=== PATIENT | male | born 1950 | race Caucasian/White ===

== ENCOUNTER 2016-07-30 11:18 | Emergency (ER) | payer MEDICARE ==
[~2016-07-30] VITALS: Ht 180.3 cm; Wt 130.0 kg
[~2016-07-30 11:18] MED LIST: ADVAI250I PO; ALBU8I INH; AMLO5 PO; ASPI81TA82 PO; ATOR20TA42 PO; BILB500C PO; CITA20TA4 PO; DIAZ10 PO; HUMALOGP SQ; HYDR-3534 PO; LAMO100 PO; LEVEMIR SQ; LORTA5 PO; NEUR600T PO; PROT40TA PO; ZOFR4TAB3 SL
[2016-07-30 11:20] VITALS: BP 178/80; PULSE 82; RESP 14; TEMP 98.2; O2SAT 99
--- NOTE | 2016-07-30 11:56 | PD ---
HPI Chief Complaint: Complaint Time Seen by Provider: 11:52 Travel History International Travel<30 days: No Contact w/Intl Traveler<30days: No Traveled to known affect area: No History of Present Illness HPI 66 year old male presents to the emergency department for evaluation of left sided chest pain and bilateral flank pain since Thursday, 5 days. Patient reports both the chest pain and flank pain has been worsening over the 5 days. He denies any nausea, vomiting, diarrhea. He does report constipation, stating his last bowel movement was on Thursday, 7 days ago. He states this is abnormal for him and usually has a bowel movement every morning. Patient states his urine is orange in color. Patient denies any previous abdominal surgeries. He denies any alcohol or current tobacco use. He does smoke marijuana. Patient presents history of hypertension, diabetes, hyperlipidemia, emphysema, on home O2 - 2.5 L. Patient does report history of chronic back pain , but states this is different. No fevers or chills. Patient currently rates chest pain 5/10, flank pain 10/10. PFSH Past Medical History Bipolar Disorder: Yes Depression: Yes Cancer: No High Cholesterol: Yes COPD: Yes Diabetes: Yes Diminished Hearing: No GERD: Yes Hypertension: Yes Insomnia: Yes Musculoskeletal: Yes (back,legs arms) Neurologic: No Psychiatric: Yes (DELUSIONS, DEPRESSION, ANXIETY) Respiratory: Yes Migraines: Yes Triglycerides - High: Yes Past Surgical History Pacemaker: No Other Surgery: Yes (2 back surgerys) Social History Alcohol Use: Yes (beer) Tobacco Use: No (QUIT LONG TIME AGO ) Substance Use: No Allergies-Medications (Allergen,Severity, Reaction): Coded Allergies: Cipro (Verified Allergy, Severe, RASHES, 07/30/16) Penicillin (Verified Allergy, Severe, RASH, 07/30/16) *MDRO Multi-Drug Resistant Organism (Verified Adverse Reaction, Unknown, ) MRSA (sputum) - 07/2012, 08/2012 MRSA PCR Screen #1 - NEGATIVE, 11/08/2014 Reported Meds & Prescriptions Reported Meds & Active Scripts Active Zofran ODT (Ondansetron HCl) 4 Mg Tab 4 Mg SL Q6H PRN FOR NAUSEA/VOMITING [place] 5-325 mg (Hydrocodone-Acetaminophen 5-325 mg) 1 Tab 1 Tab PO Q6H PRN Ventolin Hfa (Albuterol Sulfate) 8 Gm Aero 1 Puff INH Q4H PRN * SHAKE WELL BEFORE USE * Protonix (Pantoprazole Sodium) 40 Mg Tabdr 40 Mg PO DAILY 30 Days Reported Oxycodone (Oxycodone HCl) 10 Mg Tab 10 Mg PO Q6H PRN Humalog Insulin Supplemental Scale (Insulin Human Lispro) 100 Units/Ml Inj 5- 25 Units SQ TIDACHS High Dose Lispro Insulin Sliding Scale = Max dose at bedtime:( )units; Max dose at 3am:( ); blood sugars less than 70 take zero insulin units; blood sugars 150-199 take 5 unit; blood sugars 200-249 take 10 units; blood sugars 250-299 take 15 units; blood sugars 300-349 take 20 units; blood sugars greater than 349 take 25 units Levemir (Insulin Detemir) Inj 30 Units SQ HS Lortab 7.5 mg/325 mg (Hydrocodone/Acetaminophen 7.5 mg/325 mg) 1 Tab 1 Tab PO Q12HR PRN Advair Dis14 Inhala1 Fluticasone/Salmeterol 250/50 Inh 1 Puff PO BID Citalopram Hydrobromide 20 Mg Tab 20 Mg PO DAILY Gabapentin 600 Mg Tab 600 Mg PO TID Norvasc (Amlodipine Besylate) 5 Mg Tab 5 Mg PO DAILY Lipitor (Atorvastatin Calcium) 20 Mg Tab 20 Mg PO DAILY Bilberry (Bilberry (Vaccinium Myrtillus)) 500 Mg Cap 1,000 Mg PO TID Aspir-81 (Aspirin) 81 Mg Tab 81 Mg PO DAILY [id number] M1 100 Mg Tab 100 Mg PO DAILY Valium (Diazepam) 10 Mg Tab 10 Mg PO TIDPRN Review of Systems Except as stated in HPI: all other systems reviewed are Neg Physical Exam Narrative GENERAL: Well-developed well-nourished male patient, afebrile. SKIN: Warm and dry. HEAD: Normocephalic. Atraumatic. EYES: No scleral icterus. No injection or drainage. NECK: Supple, trachea midline. No JVD or lymphadenopathy. CARDIOVASCULAR: Regular rate and rhythm without murmurs, gallops, or rubs. RESPIRATORY: Breath sounds equal bilaterally. No accessory muscle use. GASTROINTESTINAL: Abdomen soft and nondistended. Patient has tenderness over left upper quadrant and mild bilateral flank pain. MUSCULOSKELETAL: No cyanosis, or edema. BACK: Nontender without obvious deformity. Mild bilateral CVA tenderness. Data Data Last Documented VS Vital Signs Date Time Temp Pulse Resp B/P Pulse Ox O2 Delivery O2 Flow Rate FiO2 07/30/16 11:20 98.2 82 14 178/80 99 Room Air Orders Electrocardiogram (07/30/16 11:50) B-Type Natriuretic Peptide (07/30/16 11:50) Ckmb (Isoenzyme) Profile (07/30/16 11:50) Complete Blood Count With Diff (07/30/16 11:50) Comprehensive Metabolic Panel (07/30/16 11:50) Magnesium (Mg) (07/30/16 11:50) Troponin I (07/30/16 11:50) Lipase (07/30/16 11:50) Chest, Single Ap (07/30/16 11:50) Ecg Monitoring (07/30/16 11:50) Bilateral Bp Monitoring (07/30/16 11:50) Iv Access Insert/Monitor (07/30/16 11:50) Oximetry (07/30/16 11:50) Oxygen Administration (07/30/16 11:50) Sodium Chloride 0.9% Flush (Ns Flush) (07/30/16 12:00) Urinalysis - C+S If Indicated (07/30/16 11:50) CKMB (07/30/16 12:50) CKMB% (07/30/16 12:50) Ct Abd/Pel W/O Iv Contrast (07/30/16 ) Hydromorphone Pf Inj (Dilaudid Pf Inj) (07/30/16 14:30) Sodium Chlor 0.9% 1000 Ml Inj (Ns 1000 M (07/30/16 14:30) Cath For Specimen (07/30/16 14:55) Labs Laboratory Tests Test 07/30/16 12:50 White Blood Count 9.3 TH/MM3 Red Blood Count 5.02 MIL/MM3 Hemoglobin 14.7 GM/DL Hematocrit 42.6 % Mean Corpuscular Volume 84.9 FL Mean Corpuscular Hemoglobin 29.4 PG Mean Corpuscular Hemoglobin 34.6 % Concent Red Cell Distribution Width 14.7 % Platelet Count 224 TH/MM3 Mean Platelet Volume 7.8 FL Neutrophils (%) (Auto) 78.6 % Lymphocytes (%) (Auto) 15.9 % Monocytes (%) (Auto) 4.3 % Eosinophils (%) (Auto) 0.7 % Basophils (%) (Auto) 0.5 % Neutrophils # (Auto) 7.3 TH/MM3 Lymphocytes # (Auto) 1.5 TH/MM3 Monocytes # (Auto) 0.4 TH/MM3 Eosinophils # (Auto) 0.1 TH/MM3 Basophils # (Auto) 0.0 TH/MM3 CBC Comment DIFF FINAL Differential Comment Sodium Level 136 MEQ/L Potassium Level 4.9 MEQ/L Chloride Level 103 MEQ/L Carbon Dioxide Level 24.4 MEQ/L Anion Gap 9 MEQ/L Blood Urea Nitrogen 19 MG/DL Creatinine 1.31 MG/DL Estimat Glomerular Filtration 55 ML/MIN Rate Random Glucose 200 MG/DL Calcium Level 8.8 MG/DL Magnesium Level 1.9 MG/DL Total Bilirubin 0.7 MG/DL Aspartate Amino Transf 44 U/L (AST/SGOT) Alanine Aminotransferase 27 U/L (ALT/SGPT) Alkaline Phosphatase 76 U/L Total Creatine Kinase 216 U/L Creatine Kinase MB 3.3 NG/ML Troponin I LESS THAN 0.02 NG/ML B-Type Natriuretic Peptide 12 PG/ML Total Protein 7.4 GM/DL Albumin 3.8 GM/DL Lipase 68 U/L [facility] Medical Decision Making Medical Screen Exam Complete: Yes Emergency Medical Condition: Yes Medical Record Reviewed: Yes Differential Diagnosis UTI versus nephrolithiasis versus bowel instruction versus constipation versus pancreatitis versus diverticulitis versus ACS versus chest wall pain versus electrolyte abnormality Narrative Course 66-year-old male presents to the emergency department for evaluation of left- sided chest pain, bilateral flank pain for 5 days. EKG, CBC, CMP, BNP, lipase, troponin, CK MB, magnesium, chest x-ray, UA are ordered and pending. Workup is initiated in triage. Patient will be moved to medical pod for further evaluation and disposition. Leana Blanco Jul 30, 2016 11:56
[2016-07-30] MEDS ORDERED: SODIUM CHLORIDE 0.9% FLUSH 5 ML FLUSH IVF PRN (12:00)
--- NOTE | 2016-07-30 13:19 | RADRPT ---
EXAM DATE/TIME: 07/30/2016 12:06 [facility] COMPARISON: CHEST SINGLE AP, November 07, 2014, 12:53. INDICATIONS : Chest pains. MEDICAL HISTORY : None. SURGICAL HISTORY : Fusion, cervical. ENCOUNTER: Initial ACUITY: 1 day PAIN SCORE: 3/10 LOCATION: Right lower chest area. FINDINGS: A single view of the chest demonstrates the lungs to be symmetrically aerated without evidence of mas s, infiltrate or effusion. The cardiomediastinal contours are unremarkable. Osseous structures are intact with anterior fixation of the lower cervical spine. CONCLUSION: No acute cardiopulmonary process. Kyaw Oliveira MD on July 30, 2016 at 13:17 Board Certified Radiologist. This report was verified electronically.
[2016-07-30 13:42] LABS: AUTOMATED NEUTROPHIL # 7.3 TH/MM3 (1.8-7.7); BASOPHIL % 0.5 % (0.0-2.0); EOSINOPHIL # 0.1 TH/MM3 (0-0.4); EOSINOPHIL % 0.7 % (0.0-4.0); HEMATOCRIT 42.6 % (39.0-51.0); HEMO FLAGS DIFF FINAL; LYMPH % 15.9 % (9.0-44.0); LYMPHOCYTE # 1.5 TH/MM3 (1.0-4.8); MEAN CELL VOLUME 84.9 FL (80.0-100.0); MEAN CORPUSCULAR HEMOGLOBIN 29.4 PG (27.0-34.0); MEAN CORPUSCULAR HGB CONC 34.6 % (32.0-36.0); MONO % 4.3 % (0.0-8.0); NEUT % 78.6 % (16.0-70.0); PLATELET COUNT 224 TH/MM3 (150-450); RED BLOOD COUNT 5.02 MIL/MM3 (4.50-5.90); RED CELL DISTRIBUTION WIDTH 14.7 % (11.6-17.2); WHITE BLOOD COUNT 9.3 TH/MM3 (4.0-11.0)
[2016-07-30] MEDS ORDERED: OXYC-395 PO (13:45)
[2016-07-30 14:16] LABS: ALKALINE PHOSPHATASE 76 U/L (45-117); ALT (GPT) 27 U/L (12-78); AST (GOT) 44 U/L (15-37); BLOOD UREA NITROGEN 19 MG/DL (7-18); GLOMERULAR FILTRATION RATE 55 ML/MIN (>89); MAGNESIUM 1.9 MG/DL (1.5-2.5); SODIUM (NA) 136 MEQ/L (136-145); TOTAL BILIRUBIN ADULT 0.7 MG/DL (0.2-1.0)
[2016-07-30 14:17] LABS: ANION GAP 9 MEQ/L (5-15); BICARBONATE 24.4 MEQ/L (21.0-32.0); CHLORIDE 103 MEQ/L (98-107); CREATINE KINASE 216 U/L (39-308); POTASSIUM 4.9 MEQ/L (3.5-5.1)
[2016-07-30 14:22] LABS: CKMB 3.3 NG/ML (0.5-3.6)
--- NOTE | 2016-07-30 14:25 | PD ---
Data Data Last Documented VS Vital Signs Date Time Temp Pulse Resp B/P Pulse Ox O2 Delivery O2 Flow Rate FiO2 07/30/16 19:40 18 07/30/16 17:31 84 165/78 98 07/30/16 11:20 98.2 Room Air Orders Electrocardiogram (07/30/16 11:50) B-Type Natriuretic Peptide (07/30/16 11:50) Ckmb (Isoenzyme) Profile (07/30/16 11:50) Complete Blood Count With Diff (07/30/16 11:50) Comprehensive Metabolic Panel (07/30/16 11:50) Magnesium (Mg) (07/30/16 11:50) Troponin I (07/30/16 11:50) Lipase (07/30/16 11:50) Chest, Single Ap (07/30/16 11:50) Ecg Monitoring (07/30/16 11:50) Bilateral Bp Monitoring (07/30/16 11:50) Iv Access Insert/Monitor (07/30/16 11:50) Oximetry (07/30/16 11:50) Oxygen Administration (07/30/16 11:50) Sodium Chloride 0.9% Flush (Ns Flush) (07/30/16 12:00) Urinalysis - C+S If Indicated (07/30/16 11:50) CKMB (07/30/16 12:50) CKMB% (07/30/16 12:50) Ct Abd/Pel W/O Iv Contrast (07/30/16 ) Hydromorphone Pf Inj (Dilaudid Pf Inj) (07/30/16 14:30) Sodium Chlor 0.9% 1000 Ml Inj (Ns 1000 M (07/30/16 14:30) Cath For Specimen (07/30/16 14:55) Mri L Spine W/O Contrast (07/30/16 ) Oxycodone (Roxicodone) (07/30/16 18:00) Labs Laboratory Tests Test 07/30/16 12:50 White Blood Count 9.3 TH/MM3 Red Blood Count 5.02 MIL/MM3 Hemoglobin 14.7 GM/DL Hematocrit 42.6 % Mean Corpuscular Volume 84.9 FL Mean Corpuscular Hemoglobin 29.4 PG Mean Corpuscular Hemoglobin 34.6 % Concent Red Cell Distribution Width 14.7 % Platelet Count 224 TH/MM3 Mean Platelet Volume 7.8 FL Neutrophils (%) (Auto) 78.6 % Lymphocytes (%) (Auto) 15.9 % Monocytes (%) (Auto) 4.3 % Eosinophils (%) (Auto) 0.7 % Basophils (%) (Auto) 0.5 % Neutrophils # (Auto) 7.3 TH/MM3 Lymphocytes # (Auto) 1.5 TH/MM3 Monocytes # (Auto) 0.4 TH/MM3 Eosinophils # (Auto) 0.1 TH/MM3 Basophils # (Auto) 0.0 TH/MM3 CBC Comment DIFF FINAL Differential Comment Sodium Level 136 MEQ/L Potassium Level 4.9 MEQ/L Chloride Level 103 MEQ/L Carbon Dioxide Level 24.4 MEQ/L Anion Gap 9 MEQ/L Blood Urea Nitrogen 19 MG/DL Creatinine 1.31 MG/DL Estimat Glomerular Filtration 55 ML/MIN Rate Random Glucose 200 MG/DL Calcium Level 8.8 MG/DL Magnesium Level 1.9 MG/DL Total Bilirubin 0.7 MG/DL Aspartate Amino Transf 44 U/L (AST/SGOT) Alanine Aminotransferase 27 U/L (ALT/SGPT) Alkaline Phosphatase 76 U/L Total Creatine Kinase 216 U/L Creatine Kinase MB 3.3 NG/ML Troponin I LESS THAN 0.02 NG/ML B-Type Natriuretic Peptide 12 PG/ML Total Protein 7.4 GM/DL Albumin 3.8 GM/DL Lipase 68 U/L [facility] Supervised Visit with ALISSON: Yes Narrative Course Patient care assumed from Leana AGUIRRE. Patient was seen as part of provider in triage screening and then moved into the [facility] pod. Patient is an onset of symptoms, complains of bilateral flank pain and low back pain. Patient states he has back pain at baseline and has had a cervical fusion in the past. Patient states he normally walks with a walker and has not had any occult he walking recently. Patient does have some tenderness in the paraspinous areas as well as bilateral flanks. CVA tenderness is deferred. Interesting the patient has not been able to pass any urine in the emergency department. CT examination of his abdomen without IV contrast shows no kidney stones and no hydronephrosis. No lumbar fracture. Recommended patient have a Jeronimo catheter to assess postvoid residual and assess for infection and he is adamantly refusing catheterization. Patient then stated that he wanted to go home. When trying to ambulate him out of the room he was very unstable likely secondary to antalgic gait. Patient does have a history of degenerative disc disease and curious if he is having problems with urination and urine retention as well as a new low back pain I have concerns for cauda equina syndrome. MRIs have been ordered. Patient was discussed with Dr. Sage the oncoming provider will follow-up MRIs and disposition properly. Given Dilaudid 1 mg IV by me and OxyContin 10 mg by mouth by me as well. Med/Other Pt SpecificInfo: Prescription(s) given Scripts Ibuprofen 400 Mg [id number] Mg PO Q8H PRN (PAIN SCALE 1 TO 4) #20 TAB Ref 0 Prov:Ciera Sage DO 07/30/16 Tamsulosin (Flomax)0.4 Mg Cap0.4 Mg PO HS #30 CAP Ref 0 Prov:Reggie Norris MD 07/30/16 Reggie Norris MD Jul 30, 2016 14:25
[2016-07-30] MEDS ORDERED: HYDROmorphone HCL PF 1 MG/ML VIAL IV PUSH ONE (14:30)
[2016-07-30] MEDS ORDERED: SODIUM CHLOR 0.9% 1000 ML INJ 1,000 ML IV ONE (14:30)
--- NOTE | 2016-07-30 15:14 | RADRPT ---
EXAM DATE/TIME: 07/30/2016 14:40 [facility] COMPARISON: No previous studies available for comparison. INDICATIONS : Bilateral flank pain. ORAL CONTRAST: No oral contrast ingested. RADIATION DOSE: 13.88 CTDIvol (mGy) MEDICAL HISTORY : Hypertension. Diabetes SURGICAL HISTORY : None. ENCOUNTER: Initial ACUITY: 1 day PAIN SCALE: 5/10 LOCATION: Bilateral flank TECHNIQUE: Volumetric scanning of the abdomen and pelvis was performed. Using automated exposure control and adjustment of the mA and/or kV according to patient size, radiation dose was kept as low as reasonably achievable to obtain optimal diagnostic quality images. FINDINGS: Lung bases are clear. The liver is free of focal defects. Spleen, pancreas and adrena ls are unremarkable. There are small gallstones in the gallbladder. RIGHT KIDNEY: There is trace perinephric stranding on the right. There are no calcifications along the expected course of the right ureter. LEFT KIDNEY: There are no calcifications in the left kidney. There are calcifications along the exp ected course of the left ureter. Prostate contains prostatic calcifications. Review of bone windows reveals only degenerative changes . CONCLUSION: Negative for renal stone or obstruction. Lack of intravenous contrast makes detection of pyelonephritis difficult. Flavio Rees MD FACR on July 30, 2016 at 15:02 Board Certified Radiologist. This report was verified electronically.
--- NOTE | 2016-07-30 16:53 | EKG ---
Date Performed: 07/30/2016 Time Performed: 13:03:15 PTAGE: 66 years EKG: Sinus rhythm NORMAL ECG NO SIGNIFICANT CHANGE FROM PRIOR ELECTROCARDIOGRAM. PREVIOUS TRACING : 02/11/2016 09.07 DOCTOR: Lucas Benedict Interpretating Date/Time 07/30/2016 16:52:31
--- NOTE | 2016-07-30 17:09 | PD ---
HPI Chief Complaint: Complaint Time Seen by Provider: 13:38 Travel History International Travel<30 days: No Contact w/Intl Traveler<30days: No Traveled to known affect area: No PFSH Past Medical History Bipolar Disorder: Yes Depression: Yes Cancer: No High Cholesterol: Yes COPD: Yes Diabetes: Yes Diminished Hearing: No GERD: Yes Hypertension: Yes Insomnia: Yes Musculoskeletal: Yes (back,legs arms) Neurologic: No Psychiatric: Yes (DELUSIONS, DEPRESSION, ANXIETY) Respiratory: Yes Migraines: Yes Triglycerides - High: Yes Past Surgical History Pacemaker: No Other Surgery: Yes (2 back surgerys) Social History Alcohol Use: No Tobacco Use: No Substance Use: No Allergies-Medications (Allergen,Severity, Reaction): Coded Allergies: Cipro (Verified Allergy, Severe, RASHES, 07/30/16) Penicillin (Verified Allergy, Severe, RASH, 07/30/16) *MDRO Multi-Drug Resistant Organism (Verified Adverse Reaction, Unknown, ) MRSA (sputum) - 07/2012, 08/2012 MRSA PCR Screen #1 - NEGATIVE, 11/08/2014 Reported Meds & Prescriptions Reported Meds & Active Scripts Active Zofran ODT (Ondansetron HCl) 4 Mg Tab 4 Mg SL Q6H PRN FOR NAUSEA/VOMITING [place] 5-325 mg (Hydrocodone-Acetaminophen 5-325 mg) 1 Tab 1 Tab PO Q6H PRN Ventolin Hfa (Albuterol Sulfate) 8 Gm Aero 1 Puff INH Q4H PRN * SHAKE WELL BEFORE USE * Protonix (Pantoprazole Sodium) 40 Mg Tabdr 40 Mg PO DAILY 30 Days Reported Oxycodone (Oxycodone HCl) 10 Mg Tab 10 Mg PO Q6H PRN Humalog Insulin Supplemental Scale (Insulin Human Lispro) 100 Units/Ml Inj 5- 25 Units SQ TIDACHS High Dose Lispro Insulin Sliding Scale = Max dose at bedtime:( )units; Max dose at 3am:( ); blood sugars less than 70 take zero insulin units; blood sugars 150-199 take 5 unit; blood sugars 200-249 take 10 units; blood sugars 250-299 take 15 units; blood sugars 300-349 take 20 units; blood sugars greater than 349 take 25 units Levemir (Insulin Detemir) Inj 30 Units SQ HS Lortab 7.5 mg/325 mg (Hydrocodone/Acetaminophen 7.5 mg/325 mg) 1 Tab 1 Tab PO Q12HR PRN Advair Dis14 Inhala1 Fluticasone/Salmeterol 250/50 Inh 1 Puff PO BID Citalopram Hydrobromide 20 Mg Tab 20 Mg PO DAILY Gabapentin 600 Mg Tab 600 Mg PO TID Norvasc (Amlodipine Besylate) 5 Mg Tab 5 Mg PO DAILY Lipitor (Atorvastatin Calcium) 20 Mg Tab 20 Mg PO DAILY Bilberry (Bilberry (Vaccinium Myrtillus)) 500 Mg Cap 1,000 Mg PO TID Aspir-81 (Aspirin) 81 Mg Tab 81 Mg PO DAILY [id number] M1 100 Mg Tab 100 Mg PO DAILY Valium (Diazepam) 10 Mg Tab 10 Mg PO TIDPRN Data Data Last Documented VS Vital Signs Date Time Temp Pulse Resp B/P Pulse Ox O2 Delivery O2 Flow Rate FiO2 07/30/16 17:31 84 18 165/78 98 07/30/16 11:20 98.2 Room Air Orders Electrocardiogram (07/30/16 11:50) B-Type Natriuretic Peptide (07/30/16 11:50) Ckmb (Isoenzyme) Profile (07/30/16 11:50) Complete Blood Count With Diff (07/30/16 11:50) Comprehensive Metabolic Panel (07/30/16 11:50) Magnesium (Mg) (07/30/16 11:50) Troponin I (07/30/16 11:50) Lipase (07/30/16 11:50) Chest, Single Ap (07/30/16 11:50) Ecg Monitoring (07/30/16 11:50) Bilateral Bp Monitoring (07/30/16 11:50) Iv Access Insert/Monitor (07/30/16 11:50) Oximetry (07/30/16 11:50) Oxygen Administration (07/30/16 11:50) Sodium Chloride 0.9% Flush (Ns Flush) (07/30/16 12:00) Urinalysis - C+S If Indicated (07/30/16 11:50) CKMB (07/30/16 12:50) CKMB% (07/30/16 12:50) Ct Abd/Pel W/O Iv Contrast (07/30/16 ) Hydromorphone Pf Inj (Dilaudid Pf Inj) (07/30/16 14:30) Sodium Chlor 0.9% 1000 Ml Inj (Ns 1000 M (07/30/16 14:30) Cath For Specimen (07/30/16 14:55) Mri C Spine W/O Contrast (07/30/16 ) Mri L Spine W/O Contrast (07/30/16 ) Mri T Spine W/O Contrast (07/30/16 ) Labs Laboratory Tests Test 07/30/16 12:50 White Blood Count 9.3 TH/MM3 Red Blood Count 5.02 MIL/MM3 Hemoglobin 14.7 GM/DL Hematocrit 42.6 % Mean Corpuscular Volume 84.9 FL Mean Corpuscular Hemoglobin 29.4 PG Mean Corpuscular Hemoglobin 34.6 % Concent Red Cell Distribution Width 14.7 % Platelet Count 224 TH/MM3 Mean Platelet Volume 7.8 FL Neutrophils (%) (Auto) 78.6 % Lymphocytes (%) (Auto) 15.9 % Monocytes (%) (Auto) 4.3 % Eosinophils (%) (Auto) 0.7 % Basophils (%) (Auto) 0.5 % Neutrophils # (Auto) 7.3 TH/MM3 Lymphocytes # (Auto) 1.5 TH/MM3 Monocytes # (Auto) 0.4 TH/MM3 Eosinophils # (Auto) 0.1 TH/MM3 Basophils # (Auto) 0.0 TH/MM3 CBC Comment DIFF FINAL Differential Comment Sodium Level 136 MEQ/L Potassium Level 4.9 MEQ/L Chloride Level 103 MEQ/L Carbon Dioxide Level 24.4 MEQ/L Anion Gap 9 MEQ/L Blood Urea Nitrogen 19 MG/DL Creatinine 1.31 MG/DL Estimat Glomerular Filtration 55 ML/MIN Rate Random Glucose 200 MG/DL Calcium Level 8.8 MG/DL Magnesium Level 1.9 MG/DL Total Bilirubin 0.7 MG/DL Aspartate Amino Transf 44 U/L (AST/SGOT) Alanine Aminotransferase 27 U/L (ALT/SGPT) Alkaline Phosphatase 76 U/L Total Creatine Kinase 216 U/L Creatine Kinase MB 3.3 NG/ML Troponin I LESS THAN 0.02 NG/ML B-Type Natriuretic Peptide 12 PG/ML Total Protein 7.4 GM/DL Albumin 3.8 GM/DL Lipase 68 U/L MDM Diagnosis Primary Impression: Back pain Qualified Code: M54.5 - Bilateral low back pain without sciatica, unspecified chronicity Additional Instructions: Follow-up your primary care provider by phone in the morning. Disposition: 01 DISCHARGE HOME Condition: Reggie Ghotra MD Jul 30, 2016 17:09
[2016-07-30 17:31] VITALS: BP 165/78
[2016-07-30] MEDS ORDERED: TAMS5CAP PO (17:57)
[2016-07-30 19:40] VITALS: RESP 18
--- NOTE | 2016-07-30 20:47 | RADRPT ---
EXAM DATE/TIME: 07/30/2016 19:44 [facility] COMPARISON: No previous studies available for comparison. INDICATIONS : Pain. Leg weakness. MEDICAL HISTORY : Diabetes mellitus type 2. Hypertension. SURGICAL HISTORY : Fusion, cervical. ENCOUNTER: Subsequent ACUITY: 4-6 days PAIN SCORE: 8/10 LOCATION: low back. TECHNIQUE: Multiplanar multisequence MRI of the lumbar spine was performed without contrast. FINDINGS: The most caudal appearing lumbar vertebra is numbered as L5. VERTEBRAE: Large presumed hemangioma in L1 vertebral body measuring up to 2.9 cm in diameter. CONUS: Normal level and configuration. T12-L1: The thecal sac has a normal diameter. No evidence of disc bulge or protrusion. The neural foramina are patent bilaterally. L1-L2: The thecal sac has a normal diameter. No evidence of disc bulge or protrusion. The neural foramina are patent bilaterally. L2-L3: Broad-based disc bulge without significant stenosis. L3-L4: Broad-based posterior disc osteophyte complex with mild stenosis of the lateral recesses and mild johnnie ateral neural foraminal stenosis. L4-L5: Posterior disc osteophyte complex with mild stenosis of the lateral recesses and mild neural foramina l encroachment. L5-S1: Mild osteophytic ridging and facet arthropathy without significant stenosis. CONCLUSION: 1. Degenerative disc disease as above with multilevel encroachment on the lateral recesses and neural foramina. No significant nerve root compression identified. Conus medullaris is intact. Probable hem angioma at L1 and also at T11 and T12. Brandyn Cottrell MD on July 30, 2016 at 20:41 Board Certified Radiologist. This report was verified electronically.
[2016-07-30] MEDS ORDERED: IBUP400T20 PO (21:33)
--- NOTE | 2016-07-30 21:34 | PD ---
Physical Exam Narrative Received sign out from previous team to follow up with MRI and reevaluate. 66yo M with chronic back pain states that he has not urinated since this morning. Pt is refusing urinary catheter and understands that he can have kidney injury with urinary retention. Pt has been having chronic back pain for years and follows with pain management as outpatient. Pt states he has been having unsteady gait for 10 years and uses a walker. MRI LS showed degenerative disc disease but no significant nerve root compression. Conus medullaris is intact. Probable hemangioma. Pt refused MRI cervical and thoracic spine. Pt is signing out against medical advice. AMA: The risks of leaving against medical advice without further evaluation treatment were discussed with the patient. These risks include cardiac dysfunction, cardiac dysrhythmia, possible heart attack, possible stroke or . The patient indicated understanding of these risks and appeared to have the capacity to make this decision. Data Data Last Documented VS Vital Signs Date Time Temp Pulse Resp B/P Pulse Ox O2 Delivery O2 Flow Rate FiO2 07/30/16 19:40 18 07/30/16 17:31 84 165/78 98 07/30/16 11:20 98.2 Room Air Orders Electrocardiogram (07/30/16 11:50) B-Type Natriuretic Peptide (07/30/16 11:50) Ckmb (Isoenzyme) Profile (07/30/16 11:50) Complete Blood Count With Diff (07/30/16 11:50) Comprehensive Metabolic Panel (07/30/16 11:50) Magnesium (Mg) (07/30/16 11:50) Troponin I (07/30/16 11:50) Lipase (07/30/16 11:50) Chest, Single Ap (07/30/16 11:50) Ecg Monitoring (07/30/16 11:50) Bilateral Bp Monitoring (07/30/16 11:50) Iv Access Insert/Monitor (07/30/16 11:50) Oximetry (07/30/16 11:50) Oxygen Administration (07/30/16 11:50) Sodium Chloride 0.9% Flush (Ns Flush) (07/30/16 12:00) Urinalysis - C+S If Indicated (07/30/16 11:50) CKMB (07/30/16 12:50) CKMB% (07/30/16 12:50) Ct Abd/Pel W/O Iv Contrast (07/30/16 ) Hydromorphone Pf Inj (Dilaudid Pf Inj) (07/30/16 14:30) Sodium Chlor 0.9% 1000 Ml Inj (Ns 1000 M (07/30/16 14:30) Cath For Specimen (07/30/16 14:55) Mri L Spine W/O Contrast (07/30/16 ) Oxycodone (Roxicodone) (07/30/16 18:00) Labs Laboratory Tests Test 07/30/16 12:50 White Blood Count 9.3 TH/MM3 Red Blood Count 5.02 MIL/MM3 Hemoglobin 14.7 GM/DL Hematocrit 42.6 % Mean Corpuscular Volume 84.9 FL Mean Corpuscular Hemoglobin 29.4 PG Mean Corpuscular Hemoglobin 34.6 % Concent Red Cell Distribution Width 14.7 % Platelet Count 224 TH/MM3 Mean Platelet Volume 7.8 FL Neutrophils (%) (Auto) 78.6 % Lymphocytes (%) (Auto) 15.9 % Monocytes (%) (Auto) 4.3 % Eosinophils (%) (Auto) 0.7 % Basophils (%) (Auto) 0.5 % Neutrophils # (Auto) 7.3 TH/MM3 Lymphocytes # (Auto) 1.5 TH/MM3 Monocytes # (Auto) 0.4 TH/MM3 Eosinophils # (Auto) 0.1 TH/MM3 Basophils # (Auto) 0.0 TH/MM3 CBC Comment DIFF FINAL Differential Comment Sodium Level 136 MEQ/L Potassium Level 4.9 MEQ/L Chloride Level 103 MEQ/L Carbon Dioxide Level 24.4 MEQ/L Anion Gap 9 MEQ/L Blood Urea Nitrogen 19 MG/DL Creatinine 1.31 MG/DL Estimat Glomerular Filtration 55 ML/MIN Rate Random Glucose 200 MG/DL Calcium Level 8.8 MG/DL Magnesium Level 1.9 MG/DL Total Bilirubin 0.7 MG/DL Aspartate Amino Transf 44 U/L (AST/SGOT) Alanine Aminotransferase 27 U/L (ALT/SGPT) Alkaline Phosphatase 76 U/L Total Creatine Kinase 216 U/L Creatine Kinase MB 3.3 NG/ML Troponin I LESS THAN 0.02 NG/ML B-Type Natriuretic Peptide 12 PG/ML Total Protein 7.4 GM/DL Albumin 3.8 GM/DL Lipase 68 U/L [facility] Supervised Visit with ALISSON: No Diagnosis Primary Impression: Back pain Qualified Code: M54.5 - Bilateral low back pain without sciatica, unspecified chronicity Patient Instructions: General Instructions, Narcotic given in the ED Departure Forms: Tests/Procedures Additional Instruction: Follow-up your primary care provider by phone in the morning. Med/Other Pt SpecificInfo: Prescription(s) given Scripts Ibuprofen 400 Mg [id number] Mg PO Q8H PRN (PAIN SCALE 1 TO 4) #20 TAB Ref 0 Prov:Ciera Sage DO 07/30/16 Tamsulosin (Flomax)0.4 Mg Cap0.4 Mg PO HS #30 CAP Ref 0 Prov:Reggie Norris MD 07/30/16 Disposition: 07 AGAINST MEDICAL ADVICE Condition: Stable Ciera Sage DO Jul 30, 2016 21:34
== END 2016-07-30 21:58 | disposition left against medical advice (07) ==
LOC: NEPB 11:18
DX: M54.5 Low back pain (principal); R39.198 Other difficulties with micturition; K59.00 Constipation, unspecified; R07.89 Other chest pain; R10.9 Unspecified abdominal pain; I10 Essential (primary) hypertension; E11.9 Type 2 diabetes mellitus without complications; J43.9 Emphysema, unspecified; E78.00 Pure hypercholesterolemia, unspecified; E78.1 Pure hyperglyceridemia; Z53.20 Procedure and treatment not carried out because of patient's decision for unspecified reasons; Z99.81 Dependence on supplemental oxygen; Z86.59 Personal history of other mental and behavioral disorders; Z87.09 Personal history of other diseases of the respiratory system; Z87.19 Personal history of other diseases of the digestive system; Z87.39 Personal history of other diseases of the musculoskeletal system and connective tissue; Z86.69 Personal history of other diseases of the nervous system and sense organs; Z79.899 Other long term (current) drug therapy
CPT/HCPCS: 71010; 72148; 74176; 80053; 82550; 82552; 83690; 83735; 83880; 84484; 85025; 93005; 96361; 96374; 99285; J1170; J7030

== ENCOUNTER → 2017-06-02 | Day surgery (SDC) | payer MEDICARE ==
[~2017-06-02] MED LIST changes: +ADVA250A INH; +AMLO5TAB2 PO; +ASPI81TA22 PO; +ATOR20TA15 PO; +BILB30CA PO; +BUPIVACAINE HCL PF 0.75% 30 ML VIAL ONE; +DIAZ10TA PO; +GABA300C5 PO; +GLIM2TAB PO; +IBUP1TAB5 PO; +LAMO100T PO; +LISI10TA3 PO; +METF500T PO; +METO1TAB9 PO; +NOVOLOGP2 SQ; +OXYC-395 PO; +OXYC1TAB36 PO; +PANT40TA3 PO; +PROPOFOL 200 MG/20 ML AMP IV ONE; +SERT-129 PO; +TAMS5CAP PO; +TRAZ100T10 PO; +TRIAMCINOLONE ACETONIDE 40 MG/ML VIAL I-ARTICULR ONE
--- NOTE | 2017-06-02 10:05 | M6 ---
cc: MERARY BORRERO M.D. DATE 06/02/2017 DATE OF 1950 PROCEDURE Fluoroscopically guided injection bilateral lumbar facet joints (bilateral L3-4, L4-5 and L5-S1 facet joints). History and physical was completed and signed. Consent was signed. Procedure site was marked. Medications were listed and reconciled. Pain score was recorded. Allergies were noted. Time out was taken. Fluoroscopy time was recorded where applicable. Sedation was administered or directed by Dr. Borrero. The patient was given oxygen. The patient was monitored by a registered nurse. Total procedure time was greater than 15 minutes. PROCEDURE NOTE IV was started. Blood pressure cuff, pulse oximeter and EKG were applied. The patient was placed in the prone position on a Celso table, sedated with small amounts of propofol titrated to effect. Vital signs were monitored and remained stable throughout the procedure. The lumbar area was prepped with alcohol and 10% Betadine solution and draped with sterile drapes. Fluoroscopy was used in a Kamlesh dog view to clearly visualize the bilateral lumbar facet joints at L3-4, L4-5 and L5-S1. Separate sterile 3-1/2-inch, 25-gauge spinal needles were advanced into these joints under fluoroscopic guidance. There was negative aspiration for blood or any other type of fluid. At each location the patient was given 1 mL of Marcaine 0.75% which contained 10 mg of Kenalog. Following the procedure the patient was taken to the recovery room with stable vital signs neurologically intact. He will be evaluated immediately and with followup to determine if he has a subjective decrease in his usual pain and a corresponding objective increase in his functional capabilities. WNorm Borrero MD [facility]Y /9:43 AM /9:48 AM
== END | disposition home or self-care (01) ==
LOC: PHSDC 07:01
PROVIDERS: ATTEND Pain Medicine Interventional Pain Medicine
DX: M54.5 Low back pain (principal)
CPT/HCPCS: 64493; 64494; 64495; 99152; J3301

== ENCOUNTER 2018-03-10 11:15 | Inpatient (IN) ==
[2018-03-10] MEDS ORDERED: Diphtheria/Tetanus/Pertussis Vaccine Inj 0.5 ML Syringe IM ONE (11:27)
[2018-03-10] MEDS ORDERED: HYDROmorphone PF Inj 2 MG/ML Vial IV.PUSH ONE (11:45)
[2018-03-10 11:55] LABS: Baso % (Auto) 0.5 % (0.0-2.0); Eos % (Auto) 0.4 % (0.0-4.0); Hematocrit 41.3 % (39.0-51.0); Hemoglobin 14.1 gm/dL (13.0-17.0); Lymph # (Auto) 0.8 th/mm3 (1.0-4.8); Lymph % (Auto) 7.3 % (9.0-44.0); Mean Corpuscular HGB Conc 34.1 % (32.0-36.0); Mean Corpuscular Hemoglobin 30.8 pg (27.0-34.0); Mean Corpuscular Volume 90.3 fL (80.0-100.0); Mean Platelet Volume 7.2 fL (7.0-11.0); Mono # (Auto) 0.5 th/mm3 (0.0-0.9); Neut # (Auto) 9.2 th/mm3 (1.8-7.7); Neut % (Auto) 86.8 % (16.0-70.0); Platelet Count 195 th/mm3 (150-450); Red Blood Count 4.57 mil/mm3 (4.50-5.90); Red Cell Distribution Width 14.1 % (11.6-17.2); White Blood Count 10.6 th/mm3 (4.0-11.0)
[2018-03-10 12:06] LABS: Activated Partial Thrombo Time 22.9 sec (24.3-30.1); INR 1.1 Ratio; Prothrombin Time 10.9 sec (9.8-11.6)
--- NOTE | 2018-03-10 12:17 | ED ---
HPI General Chief Complaint: Fall Stated Complaint: Fall/Right lower leg Time Seen by Provider: 03/10/18 11:21 Source: patient, EMS and RN notes reviewed Mode of arrival: EMS Limitations: no limitations History of Present Illness HPI Narrative: 67-year-old male with a chronic history of spinal disease with chronic back pain as well as high blood pressure and diabetes presents to the ED for evaluation of injury to his right ankle. Per patient he "just felt ". He denies any preloading symptoms to the fall. He denies tripping but states that this is a common occurrence for him. He has fallen multiple times in the past. He denies any recent surgeries to his ankle. Patient himself cannot get up and had an obvious deformity to his right ankle and per EVAC and per patient she crawl into his house where he called 911. Per EVAC is been pretty much with it. Patient denies any chest pain or shortness of breath. He does state feeling dizzy after the fall. He states that the pain currently is 8 out of 10. He was given morphine 10 mg IV by EVAC. Patient was put on a backboard. No cervical collar placed. Patient does have obvious deformity to the right ankle with what appears to be a superficial laceration. Per EVAC patient was seen initially by fire department who put the splint. Per EVAC patient has good pulses. Patient states that he cannot move the ankle and states having some numbness and sensation deficits to the foot itself but able to feel pain however. Patient cannot really tell me when his last tetanus shot was. Per patient he ate this morning around 6:00 in the morning. He chronically does take opiates. He denies having orthopedic surgeon. Related Data Home Medications Medication Instructions Recorded Confirmed amlodipine 5 mg PO DAILY 03/10/18 03/10/18 atorvastatin 20 mg PO HS 03/10/18 03/10/18 diazepam [Valium] 10 mg PO Q8HR 03/10/18 03/10/18 gabapentin 600 mg PO TID 03/10/18 03/10/18 glimepiride 2 mg PO QAM 03/10/18 03/10/18 insulin aspart U-100 [Novolog 1 sliding scale dose SUB-Q TIDAC 03/10/18 03/10/18 U-100 Insulin aspart] lamotrigine [Lamictal] 150 mg PO DAILY 03/10/18 03/10/18 lisinopril 10 mg PO DAILY 03/10/18 03/10/18 oxycodone-acetaminophen [Percocet] 1 tab PO TID 03/10/18 03/10/18 pantoprazole 40 mg PO DAILY 03/10/18 03/10/18 sertraline [Zoloft] 150 mg PO DAILY 03/10/18 03/10/18 sertraline [Zoloft] 150 mg PO DAILY 03/10/18 03/10/18 tamsulosin [Flomax] 0.4 mg PO HS 03/10/18 03/10/18 trazodone 200 mg PO HS 03/10/18 03/10/18 Allergies Allergy/AdvReac Type Severity Reaction Status Date / Time ciprofloxacin Allergy Severe RASHES Verified 03/10/18 11:38 penicillin G Allergy Severe RASH Verified 03/10/18 11:38 Review of Systems ROS: all other systems reviewed are negative PMFSH History History Provided By: Patient and Civil Division Deputy Sheriff / EMT Medical History Medical History Anxiety (Acute) Diabetes (Acute) HBP (high blood pressure) (Acute) Surgical History Surgical History Hx of neck surgery (Acute) Social History Social History Substance History: No History of Abuse Second Hand Smoke Exposure: No Smoking Status: Former smoker Tobacco Type: Cigarettes How Often Do You Have a Drink Containing Alcohol: Monthly or less Recent Travel in [facility] within the Last 8 Weeks: No Recent Out of Country Travel within the Last 8 Weeks: No Exam Narrative Exam Narrative: GENERAL: Well appearing. SKIN: Focused skin assessment warm/dry. HEAD: Atraumatic. Normocephalic. EYES: Pupils equal and round. No scleral icterus. No injection or drainage. ENT: No nasal bleeding or discharge. Mucous membranes pink and moist. Tongue is midline. No uvula deviation. NECK: Trachea midline. No JVD. CARDIOVASCULAR: Regular rate and rhythm. No murmur appreciated. RESPIRATORY: No accessory muscle use. Clear to auscultation. Breath sounds equal bilaterally. GASTROINTESTINAL: Abdomen soft, non-tender, nondistended. Hepatic and splenic margins not palpable. MUSCULOSKELETAL: No obvious deformities. No clubbing. No cyanosis. No edema. Full range of motion of the upper and lower extremities bilateral With exception of the right ankle were patient has obvious deformity what appears to be open laceration on the right medial aspect of the ankle just superior to the malleolus. No obvious bone noted but laceration does appear to be deep almost 1 -2 cm. Patient does appear to have 2+ pulses in the distal posterior tibialis and dorsalis pedis. 2+ pulses bilaterally. NEUROLOGICAL: Awake and alert. No obvious cranial nerve deficits. Motor grossly within normal limits. Normal speech. PSYCHIATRIC: Appropriate mood and affect; insight and judgment normal. Procedures Orthopedic Fracture Reduction Fracture #1: Time Out Performed: Yes Side: right Fracture Reduction Location: tibia and fibula Analgesia: procedural sedation Technique: direct manipulation Post Reduction X-rays Demonstrate: acceptable reduction Post-Reduction Neuro Exam: intact Post-Reduction Vascular Exam: intact Splint Applied: Yes Patient Tolerated Procedure: well Course Initial Documented Vital Signs Temperature 97.9 F 03/10/18 11:25 Pulse Rate 96 H 03/10/18 11:25 Respiratory Rate 18 03/10/18 11:25 Blood Pressure 159/75 H 03/10/18 11:25 Pulse Oximetry 97 03/10/18 11:25 Last Documented Vital Signs Temperature 97.7 F 03/10/18 13:25 Pulse Rate 106 H 03/10/18 13:25 Respiratory Rate 20 03/10/18 13:25 Blood Pressure 156/80 H 03/10/18 13:25 Pulse Oximetry 97 03/10/18 14:21 Medical Decision Making [facility] Narrative Medical decision making narrative: 67-year-old male the presents to the ED for evaluation of right ankle injury. Patient was properly examined and was found to have signs and symptoms concerning for fractures. X-rays were ordered. X- ray showed What appears to be fracture of the proximal fibula as well as the distal tib-fib. It appears to be open. My attending Dr. Robles was made aware of findings. Patient will start IV antibiotics. We spoke with Dr. Andrews for orthopedic surgery who recommends that we reduce the ankle and put him on a long-leg splint. Patient was told this and agrees with plan. Patient was put under conscious sedation for reduction of the ankle with minimal discomfort for the patient, please refer to the note, my attending Dr Robles was present at all times during the procedure. Patient tolerated procedure well. Splint was placed by ED or to attack. Labs and imaging otherwise unremarkable. Patient will be admitted for further evaluation to Dr. Ramos after [facility] nurse practitioner call us back and agreed to admission. Medical Screen Exam Complete: Yes Emergency Medical Condition: Yes Differential Diagnosis Differential Diagnosis: Fracture versus sprain versus strain versus open fracture versus dislocation versus open dislocation Medical Records Medical records reviewed: Yes I reviewed the patient's medical records. Lab Data Lab results reviewed: Yes I reviewed the patient's lab results. Lab results narrative: troponin and CKMB negative Result diagrams: 03/10/18 11:31 03/10/18 11:31 Lab Results 03/10/18 03/10/18 03/10/18 Range/Units 11:31 11:31 11:31 WBC 10.6 (4.0-11.0) th/mm3 RBC 4.57 (4.50-5.90) mil/mm3 Hgb 14.1 (13.0-17.0) gm/dL Hct 41.3 (39.0-51.0) % MCV 90.3 (80.0-100.0) fL MCH 30.8 (27.0-34.0) pg MCHC 34.1 (32.0-36.0) % RDW 14.1 (11.6-17.2) % Plt Count 195 (150-450) th/mm3 MPV 7.2 (7.0-11.0) fL Neut % (Auto) 86.8 H (16.0-70.0) % Lymph % (Auto) 7.3 L (9.0-44.0) % [place] % (Auto) 5.0 (0.0-8.0) % Eos % (Auto) 0.4 (0.0-4.0) % Baso % (Auto) 0.5 (0.0-2.0) % Neut # (Auto) 9.2 H (1.8-7.7) th/mm3 Lymph # (Auto) 0.8 L (1.0-4.8) th/mm3 [place] # (Auto) 0.5 (0.0-0.9) th/mm3 Eos # (Auto) 0.0 (0.0-0.4) th/mm3 Baso # (Auto) 0.0 (0.0-0.2) th/mm3 WBC Differential . Differential Comment Auto diff final PT 10.9 (9.8-11.6) sec INR 1.1 Ratio APTT 22.9 L (24.3-30.1) sec Sodium 142 (136-145) meq/L Potassium 4.0 (3.5-5.1) meq/L Chloride 105 (98-107) meq/L Carbon Dioxide 27.4 (21.0-32.0) meq/L Anion Gap 10 (5-15) meq/L BUN 15 (7-18) mg/dL Creatinine 1.43 H (0.60-1.30) mg/dL Estimated GFR 50 L (>89) mL/min Random Glucose 388 H (74-106) mg/dL Calcium 8.9 (8.5-10.1) mg/dL Troponin I Less than 0.02 L (0.02-0.05) ng/mL Imaging Data Attestation: I personally reviewed and interpreted this imaging study as follows : Radiologist's impression: Ankle X-Ray 03/10/18 11:27 CONCLUSION: Small fracture of the tibia with some rotation and angulation. Chest X-Ray 03/10/18 11:27 CONCLUSION: 1. Mild pulmonary vascular congestion. 2. Cardiomegaly. Tibia/Fibula X-Ray 03/10/18 11:27 CONCLUSION: Fibular neck fracture. Spiral fractures involving both the tibial shaft distally in the fibular shaft distally Foot X-Ray 03/10/18 12:28 CONCLUSION: Negative examination. Small plantar spur ECG Data EKG Prior to Arrival: No Attestation: I personally reviewed and interpreted this ECG as follows: Interpretation: EKG shows sinus tachycardia with no sign of acute ischemia and arrhythmia read by me and attending. Discharge Plan Discharge Disposition Patient Disposition: 30 Still Patient Discharge Details Diagnosis: Fracture of tibia and fibula, open Physicians Team ED Provider: Dada Robles ED Midlevel Provider: Haider Kent Primary Care Provider: Cooper Gandih Attending Provider: Angy Ramos Status ED Status: Admitted Patient
[2018-03-10 12:19] LABS: Anion Gap 10 meq/L (5-15); Blood Urea Nitrogen 15 mg/dL (7-18); Calcium 8.9 mg/dL (8.5-10.1); Carbon Dioxide 27.4 meq/L (21.0-32.0); Chloride 105 meq/L (98-107); Glomerular Filtration Rate 50 mL/min (>89); Glucose,Random 388 mg/dL (74-106); Sodium 142 meq/L (136-145)
[2018-03-10] MEDS ORDERED: Morphine Sulfate Inj 2 MG/ML Vial IV.PUSH PRN (14:27)
[2018-03-10] MEDS ORDERED: Dextrose 50% in Water 50 ML Vial IV.PUSH PRN (15:23)
[2018-03-10] MEDS: Sod Chloride 0.9% Inj 1,000 ML IV.CONT SCH (15:36)
[2018-03-10] MEDS: Insulin NovoLOG Aspart Correctional Sugar Inj SQ SCH ×2 (18:15→20:23)
[2018-03-10] MEDS: HYDROmorphone PF Inj 2 MG/ML Vial IV.PUSH PRN ×2 (18:24→23:10)
[2018-03-10] MEDS: traZODone 100 MG Tablet PO SCH (20:23)
[2018-03-11] MEDS: Sod Chloride 0.9% Inj 1,000 ML IV.CONT SCH ×3 (02:16→11:05)
[2018-03-11] MEDS: HYDROmorphone PF Inj 2 MG/ML Vial IV.PUSH PRN ×2 (04:49→12:33)
[2018-03-11 05:11] LABS: Baso % (Auto) 0.4 % (0.0-2.0); Eos # (Auto) 0.1 th/mm3 (0.0-0.4); Eos % (Auto) 1.8 % (0.0-4.0); Hematocrit 37.1 % (39.0-51.0); Hemoglobin 12.5 gm/dL (13.0-17.0); Lymph # (Auto) 1.9 th/mm3 (1.0-4.8); Lymph % (Auto) 22.7 % (9.0-44.0); Mean Corpuscular HGB Conc 33.7 % (32.0-36.0); Mean Corpuscular Hemoglobin 30.8 pg (27.0-34.0); Mean Corpuscular Volume 91.4 fL (80.0-100.0); Mean Platelet Volume 7.3 fL (7.0-11.0); Mono # (Auto) 0.7 th/mm3 (0.0-0.9); Mono % (Auto) 7.9 % (0.0-8.0); Neut # (Auto) 5.6 th/mm3 (1.8-7.7); Neut % (Auto) 67.2 % (16.0-70.0); Platelet Count 183 th/mm3 (150-450); Red Blood Count 4.06 mil/mm3 (4.50-5.90); Red Cell Distribution Width 14.3 % (11.6-17.2); White Blood Count 8.3 th/mm3 (4.0-11.0)
[2018-03-11 05:35] LABS: Calcium 8.2 mg/dL (8.5-10.1); Carbon Dioxide 26.1 meq/L (21.0-32.0); Potassium 3.8 meq/L (3.5-5.1)
[2018-03-11] MEDS ORDERED: Chlorhexidine Gluconate 2% 1 Pack (2 Cloths) TOPICAL ONE (06:00)
[2018-03-11] MEDS ORDERED: Metoprolol Tartrate 25 MG Tablet PO ONE (06:00)
[2018-03-11] MEDS ORDERED: Sodium Chlor 0.9% Inj 500 ML IV.CONT ONE (06:00)
[2018-03-11] MEDS ORDERED: Bupivacaine/Epinephrine PF Inj 0.25% 10 ML Vial ONE (06:57)
[2018-03-11] MEDS ORDERED: Glycopyrrolate Inj 1 MG/5 ML Syringe IV.PUSH ONE (07:30)
[2018-03-11] MEDS ORDERED: Neostigmine Inj 5 MG/5 ML Syringe IV.PUSH ONE (07:30)
[2018-03-11] MEDS ORDERED: Lidocaine PF 1% Inj 5 ML Syringe OTHER ONE (07:30)
[2018-03-11] MEDS ORDERED: Post-op Orders (for Pharmacy) OTHER STA (08:23)
[2018-03-11 08:28] LABS: Bilirubin,Urine Negative (Negative); Clarity,Urine Hazy (Clear); Color,Urine Yellow (Yellw/Straw); Glucose,Urine (UA) 500 or Greater mg/dL (Negative); Hyaline Casts,Urine 9 /lpf (0-3); Leukocyte Esterase,Urine Negative (Negative); Mucus,Urine Few /lpf (Occasional); Nitrite,Urine Negative (Negative); Specific Gravity,Urine 1.028 (1.002-1.035)
[2018-03-11] MEDS ORDERED: fentaNYL Citrate Inj 100 MCG/2 ML Ampul ONE (09:07)
[2018-03-11] MEDS ORDERED: *morphine SULFATE 4 MG/ML PERIprocedure ONLY ONE (09:15)
[2018-03-11] MEDS: Insulin NovoLOG Aspart Correctional Sugar Inj SQ SCH ×4 (09:22→23:11)
[2018-03-11] MEDS: Gabapentin 300 MG Capsule PO SCH ×3 (10:08→17:32)
[2018-03-11] MEDS: Sertraline 50 MG Tablet PO SCH (10:08)
[2018-03-11] MEDS: lamoTRIgine 100 MG Tablet PO SCH (10:08)
[2018-03-11] MEDS: Sertraline 100 MG Tablet PO SCH (10:09)
[2018-03-11] MEDS: Lisinopril 10 MG Tablet PO SCH (10:09)
[2018-03-11] MEDS: amLODIPine 5 MG Tablet PO SCH (10:10)
[2018-03-11] MEDS: Calcium/Vitamin D 250/125 MG Tablet PO SCH ×3 (10:18→17:32)
[2018-03-11] MEDS: Senna/Docusate Sodium 8.6/50 MG Tablet PO SCH ×2 (10:18→22:50)
[2018-03-11] MEDS: Glimepiride 2 MG Tablet PO SCH (15:09)
[2018-03-11] MEDS: Gentamicin/NS 80 mg Premix 100 ML IV.SIG SCH (17:32)
--- NOTE | 2018-03-11 20:04 | ECG ---
Date Performed: 03/10/2018 Time Performed: 11:54:29 PTAGE: 67 years EKG: SINUS TACHYCARDIA NONDIAGNOSTIC Q WAVES IN THE INFERIOR LEADS PVC Since the previous tracin g, no significant change noted ABNORMAL RHYTHM ECG PREVIOUS TRACING : 12/07/2017 13.10 DOCTOR: Jignesh Hutchins Interpretating Date/Time 03/11/2018 20:03:15
[2018-03-11] MEDS ORDERED: Acetaminophen 325 MG Tablet PO PRN (21:29)
[2018-03-11] MEDS: Vancomycin Inj 1,000 MG in Sodium Chlor 0.9% Inj 250 ML IV.SIG SCH (21:44)
[2018-03-11] MEDS: traZODone 100 MG Tablet PO SCH (22:50)
[2018-03-12] MEDS: Sod Chloride 0.9% Inj 1,000 ML IV.CONT SCH ×4 (00:50→17:05)
[2018-03-12] MEDS: Gentamicin/NS 80 mg Premix 100 ML IV.SIG SCH ×3 (00:55→16:29)
[2018-03-12] MEDS: HYDROmorphone PF Inj 2 MG/ML Vial IV.PUSH PRN ×2 (01:07→11:18)
[2018-03-12] MEDS: Glimepiride 2 MG Tablet PO SCH (07:00)
[2018-03-12] MEDS: Insulin NovoLOG Aspart Correctional Sugar Inj SQ SCH ×4 (08:00→22:12)
[2018-03-12] MEDS: Sertraline 100 MG Tablet PO SCH (08:32)
[2018-03-12] MEDS: Lisinopril 10 MG Tablet PO SCH (08:32)
[2018-03-12] MEDS: Gabapentin 300 MG Capsule PO SCH ×3 (08:32→17:05)
[2018-03-12] MEDS: Senna/Docusate Sodium 8.6/50 MG Tablet PO SCH ×2 (08:32→20:26)
[2018-03-12] MEDS: Sertraline 50 MG Tablet PO SCH (08:33)
[2018-03-12] MEDS: lamoTRIgine 100 MG Tablet PO SCH (08:33)
[2018-03-12] MEDS: amLODIPine 5 MG Tablet PO SCH (08:33)
[2018-03-12] MEDS: Enoxaparin Inj 40 MG/0.4 ML Syringe SQ SCH (08:33)
[2018-03-12] MEDS: Calcium/Vitamin D 250/125 MG Tablet PO SCH ×3 (08:34→17:05)
[2018-03-12] MEDS: Vancomycin Inj 1,000 MG in Sodium Chlor 0.9% Inj 250 ML IV.SIG SCH (08:37)
[2018-03-12 13:11] LABS: Hematocrit 34.9 % (39.0-51.0); Hemoglobin 11.9 gm/dL (13.0-17.0); Mean Corpuscular Hemoglobin 30.9 pg (27.0-34.0); Mean Corpuscular Volume 90.9 fL (80.0-100.0); Mean Platelet Volume 7.6 fL (7.0-11.0); Platelet Count 193 th/mm3 (150-450); Red Blood Count 3.84 mil/mm3 (4.50-5.90); Red Cell Distribution Width 14.1 % (11.6-17.2); White Blood Count 7.9 th/mm3 (4.0-11.0)
[2018-03-12] MEDS: traZODone 100 MG Tablet PO SCH (20:26)
[2018-03-13] MEDS: HYDROmorphone PF Inj 2 MG/ML Vial IV.PUSH PRN ×2 (00:06→06:42)
[2018-03-13] MEDS: Gentamicin/NS 80 mg Premix 100 ML IV.SIG SCH ×2 (00:07→09:06)
[2018-03-13] MEDS: Enoxaparin Inj 40 MG/0.4 ML Syringe SQ SCH (09:00)
[2018-03-13] MEDS: Gabapentin 300 MG Capsule PO SCH (09:01)
[2018-03-13] MEDS: Sertraline 50 MG Tablet PO SCH (09:02)
[2018-03-13] MEDS: Calcium/Vitamin D 250/125 MG Tablet PO SCH (09:04)
[2018-03-13] MEDS: Senna/Docusate Sodium 8.6/50 MG Tablet PO SCH (09:05)
[2018-03-13] MEDS: amLODIPine 5 MG Tablet PO SCH (09:05)
[2018-03-13] MEDS: Glimepiride 2 MG Tablet PO SCH (09:05)
[2018-03-13] MEDS: Sertraline 100 MG Tablet PO SCH (09:07)
[2018-03-13] MEDS: Lisinopril 10 MG Tablet PO SCH (09:07)
[2018-03-13] MEDS: lamoTRIgine 100 MG Tablet PO SCH (10:05)
[2018-03-13] MEDS: Insulin NovoLOG Aspart Correctional Sugar Inj SQ SCH (10:06)
== END 2018-03-13 13:30 ==
LOC: NEPE 11:15 → NEDA 14:18 → N06 15:20
PROVIDERS: ADMIT Hospitalist; ATTEND Hospitalist
PROC: ORIFTIB (2018-03-11 07:16)